=== PATIENT | female | born 1970 | race Caucasian/White ===

== ENCOUNTER 2016-12-23 01:43 | Emergency (ER) | payer BC ==
[~2016-12-23] VITALS: Ht 165.1 cm; Wt 75.3 kg
[2016-12-23 02:37] LABS: RED CELL DISTRIBUTION WIDTH 13.8 % (11.5-14.5)
[2016-12-23 02:39] LABS: CHLORIDE SERUM 104 mmol/L (98-107); CREATININE SERUM 0.8 mg/dL (0.6-1.0); GFR1 > 60 mL/min; GLUCOSE SERUM 107 mg/dL (74-106); POTASSIUM SERUM 3.5 mmol/L (3.5-5.1); SODIUM SERUM 141 mmol/L (136-145)
[2016-12-23 02:43] LABS: ALBUMIN 3.7 g/dL (3.4-5.0); ALKALINE PHOSPHATASE 108 U/L (46-116); ALT/SGPT 31 U/L (14-59); AST/SGOT 21 U/L (15-37); BILIRUBIN TOTAL 0.29 mg/dL (0.20-1.00); LIPASE 155 IU/L (73-393); TOTAL PROTEIN, SERUM 7.7 g/dL (6.4-8.2)
[2016-12-23 02:44] LABS: BASOPHIL % 4.7 % (0-2); PLATELET COUNT 406 x10^3mcL (130-400)
[2016-12-23 03:49] VITALS: BP 136/82
== END 2016-12-23 03:49 | disposition home or self-care (01) ==
LOC: ED 01:43
PROVIDERS: Emergency Medicine
DX: K21.9 Gastro-esophageal reflux disease without esophagitis (principal)
CPT/HCPCS: 36415; Q0162

== ENCOUNTER 2017-02-02 21:50 | Inpatient (IN) | payer BC ==
[~2017-02-02] VITALS: Ht 154.9 cm; Wt 74.8 kg
[2017-02-02 23:49] LABS: BASOPHIL % 0.2 % (0-2)
[2017-02-02 23:58] LABS: PLATELET COUNT 408 x10^3mcL (130-400); RED CELL DISTRIBUTION WIDTH 15.3 % (11.5-14.5)
[2017-02-03 00:04] LABS: CALCIUM 8.8 mg/dL (8.5-10.1); CARBON DIOXIDE 28.4 mmol/L (21-32); CHLORIDE SERUM 103 mmol/L (98-107); CREATININE SERUM 0.7 mg/dL (0.6-1.0); GFR1 > 60 mL/min; GLUCOSE SERUM 110 mg/dL (74-106); POTASSIUM SERUM 3.4 mmol/L (3.5-5.1); SODIUM SERUM 139 mmol/L (136-145)
[2017-02-03 00:15] LABS: ALBUMIN 3.7 g/dL (3.4-5.0); ALKALINE PHOSPHATASE 115 U/L (46-116); ALT/SGPT 28 U/L (14-59); AST/SGOT 20 U/L (15-37); BILIRUBIN TOTAL 0.6 mg/dL (0.20-1.00); TOTAL PROTEIN, SERUM 7.8 g/dL (6.4-8.2)
[2017-02-03 05:03] LABS: PHOSPHOROUS 3.9 mg/dL (2.5-4.9)
[2017-02-03 05:08] LABS: CHOLESTEROL/HDL RATIO 2.9
[2017-02-03 05:14] LABS: T3 TOTAL 1.1 ng/mL
[2017-02-03 05:17] LABS: FREE THYROXINE INDEX 3.3 ug/dL (1.4-4.5); T4(THYROXINE) 10.5 ug/dL (4.7-13.3)
[2017-02-03 09:38] VITALS: BP 125/75
[2017-02-03 10:18] LABS: UA SPECIFIC GRAVITY 1.015 (1.005-1.035); microscopic required? YES; urine erythrocyte TRACE (NEGATIVE)
[2017-02-03 10:22] VITALS: BP 123/80
[2017-02-03 10:27] LABS: AMPHETAMINE QUAL UR NONE DETECTED (NEG <=1000)
[2017-02-03 14:00] VITALS: BP 104/66
[2017-02-03 18:26] VITALS: BP 109/71
[2017-02-03 21:25] VITALS: BP 112/64
[2017-02-04 06:01] VITALS: BP 99/52
[2017-02-04 07:17] LABS: BASOPHIL % 0.4 % (0-2); PLATELET COUNT 392 x10^3mcL (130-400)
[2017-02-04 07:20] LABS: RED CELL DISTRIBUTION WIDTH 15.2 % (11.5-14.5)
[2017-02-04 07:29] LABS: CALCIUM 8.6 mg/dL (8.5-10.1); CARBON DIOXIDE 27.1 mmol/L (21-32); CHLORIDE SERUM 106 mmol/L (98-107); CREATININE SERUM 0.7 mg/dL (0.6-1.0); GFR1 > 60 mL/min; GLUCOSE SERUM 92 mg/dL (74-106); MAGNESIUM 2.2 mg/dL (1.8-2.4); PHOSPHOROUS 3.6 mg/dL (2.5-4.9); POTASSIUM SERUM 4.1 mmol/L (3.5-5.1); SODIUM SERUM 140 mmol/L (136-145)
[2017-02-04 09:58] VITALS: BP 141/87
[2017-02-04 13:01] VITALS: BP 133/71
[2017-02-04 15:54] VITALS: BP 133/71
== END 2017-02-04 16:19 | disposition home or self-care (01) | DRG 392 ==
LOC: ED 21:50 → DU 02-03 04:28
PROVIDERS: Emergency Medicine; ADMIT Family Medicine
DX: K21.9 Gastro-esophageal reflux disease without esophagitis (principal); E83.42 Hypomagnesemia; E87.6 Hypokalemia; I49.3 Ventricular premature depolarization; D64.9 Anemia, unspecified; E78.5 Hyperlipidemia, unspecified; F41.9 Anxiety disorder, unspecified; Z68.27 Body mass index [BMI] 27.0-27.9, adult; Z90.49 Acquired absence of other specified parts of digestive tract
CPT/HCPCS: 83880; 84439; J3475; J7030